=== PATIENT | female | born 1995 | race American Indian/Alaskan Native ===

== ENCOUNTER 2017-04-19 11:20 | Emergency (ER) | payer MEDICAID ==
[2017-04-19 11:44] VITALS: BMI 25.3
[2017-04-19] MEDS ORDERED: Lactated Ringer's 1,000 ML IV SCH (11:45)
--- NOTE | 2017-04-19 11:50 | OBHP ---
Datetime: 04/19/2017 11:47 IP Adm Impression: Postterm, intrauterine Admit Comment, IP Provider: at 40=weeks julio with c/o ctxs started last night, 03/30, no vb, lof ,+fm. obhx priimi pmh de med pnv all nkda psh de soch de ve ft/50/-3 a/p at 40weeks in early labor npo/ivf will revaluate Pelvic Type - PN: Adequate Extremities - PN: Normal Abdomen - PN: Normal Back - PN: Normal Breast - PN: Normal Lungs - PN: Normal Heart - PN: Normal Thyroid - PN: Normal Neurologic - PN: Normal HEENT - PN: Normal General - PN: Normal FHR - Baseline A Provider: 130 Contraction Comments Provider: irrg EGA AdmitDate IP: 40.1 Vital Signs Provider: Reviewed; Within Normal Limits IP Chief Complaint: Uterine contractions NICHD Variability Prov Fetus A: Moderate 6-25bpm Dilatation, Provider: ft Effacement, Provider: 50 Station, Provider: -3 Genitourinary Exam: Normal DTRs - PN: Normal
--- NOTE | 2017-04-19 14:51 | OBHP ---
Datetime: 04/19/2017 14:48 Admit Comment, IP Provider: pt was seen at bed side. c/o ctxs irrg, no vb, lof,+fm ve ft/50/-3 plan dc home labor ins given po hyration f/u on saturday in clinic FHR - Baseline A Provider: 130 Contraction Comments Provider: irrg Vital Signs Provider: Reviewed; Within Normal Limits NICHD Variability Prov Fetus A: Moderate 6-25bpm NICHD Accel Fetus A IP Provider: 15X15 FHR Category Provider Fetus A: Category I Dilatation, Provider: ft Effacement, Provider: 50 Station, Provider: -3 Datetime: 04/19/2017 11:47 EGA AdmitDate IP: 40.1
--- NOTE | 2017-04-19 14:53 | OBDCSUM ---
Datetime: 04/19/2017 14:50 Discharged to, Provider: Home Follow up at, Provider: saturday Disch Instr Diet: Regular Follow up in weeks, Provider: clinic Discharge Comment, Provider: dc home labor ins given po hyration f/u on saturday in clinic Discharge Diagnosis Prov Other: 40weeks false labor nst
--- NOTE | 2017-04-20 20:11 | OBADHP ---
Datetime: 04/20/2017 14:37 Admit Comment, IP Provider: 21yo with IUP at 40+ wks reports here today c/o spontaneous rupture of membranes at 12: 30pm today. She denies any VB but feels good movements. PNC at [facility] fifi. Uncomplicated course,. TOCo- Q 2-4mins. FHR- Category 1, Vtx- presentation, Assessment: IUP at 40+wks Spontaneous rupture of Membranes Plan: Admit for Labor monitoring. Pelvic Type - PN: Adequate Extremities - PN: Normal Abdomen - PN: Normal Back - PN: Normal Breast - PN: Normal Lungs - PN: Normal Heart - PN: Normal Thyroid - PN: Normal Neurologic - PN: Normal HEENT - PN: Normal General - PN: Normal Presentation-Admit: Vertex FHR - Baseline A Provider: 140 Membranes, Provider: Ruptured Comments, ACOG Physical Exam: Abd: Soft, NT, BS- present Gestation - Est Wks by US: 40.0 Pool Provider: Positive Nitrazine Provider: Positive Vital Signs Provider: Reviewed IP Chief Complaint: Uterine contractions; Suspected ruptured membranes; Maternal discomfort NICHD Variability Prov Fetus A: Moderate 6-25bpm NICHD Accel Fetus A IP Provider: 15X15 FHR Category Provider Fetus A: Category I NICHD Decel Fetus A IP Provider: None Dilatation, Provider: 3 Effacement, Provider: 80 Station, Provider: -1 Genitourinary Exam: Normal DTRs - PN: Normal EGA AdmitDate IP: 40.2 IP Adm Impression: Term, intrauterine ; Active labor; Ruptured Membranes IP Admit Plan: Admit to unit; Initiate labor protocol Datetime: 04/19/2017 14:48 Contraction Comments Provider: irrg
[2017-04-20 21:08] LABS: MEAN CELL VOLUME 76.6 fL (81.0-99.0); MEAN CORPUSCULAR HEMOGLOBIN 23.6 pg (27.0-31.0); MEAN CORPUSCULAR HGB CONC 30.8 g/dL (33.0-37.0); MEAN PLATELET VOLUME 9.7 fL (7.2-11.7); RED CELL DISTRIBUTION WIDTH 15.3 % (11.5-14.5); WHITE BLOOD COUNT 12.9 K/uL (4.8-10.8)
[2017-04-20 21:20] LABS: ALKALINE PHOSPHATASE 234 U/L (38-126); ALT/SGPT 24 U/L (9-52); AST/SGOT 25 U/L (14-36); BILIRUBIN,TOTAL 0.8 mg/dL (0.2-1.3); BLOOD UREA NITROGEN 4 mg/dL (7-17); CALCIUM 9.3 mg/dl (8.6-10.4); CARBON DIOXIDE 21 mmol/L (22-30); CHLORIDE 101 mmol/L (98-107); GFR AFRICAN-AMERICAN > 60; GLUCOSE,RANDOM 64 mg/dL (65-105); POTASSIUM 3.2 mmol/L (3.6-5.2); SODIUM 135 mmol/L (132-148); TOTAL PROTEIN 7.3 g/dL (6.3-8.3)
[2017-04-20 23:39] LABS: RBC URINE 14 /hpf (0-3); URINE BACTERIA OCC (<OCC); URINE BILIRUBIN NEGATIVE (NEGATIVE); URINE BLOOD 3+ (NEGATIVE); URINE COLOR Yellow (YELLOW); URINE GLUCOSE (UA) NORMAL (Normal); URINE KETONE 2+ mg/dL (NEGATIVE); URINE LEUKOCYTE ESTERASE 2+ Leu/uL (Negative); URINE PROTEIN 2+ mg/dL (NEGATIVE); WBC URINE 59 /hpf (0-5)
--- NOTE | 2017-04-22 14:54 | OBPPN ---
Datetime: 04/22/2017 14:47 PP Pain Prov: Within normal limits PP Nausea Prov: Denies PP Flatus Prov: No PP BM Prov: No PP Breasts Prov: Normal PP Heart Prov: Normal PP Lungs Prov: Normal PP Abdomen/Uterus Prov: Normal PP Lochia Prov: Normal PP Vulva/Perineum Prov: Normal PP CVA Tenderness Prov: Normal PP Extremities Prov: Normal PP C/S Incision Prov: Not Applicable PP Progress Prov: Normal PP Comments Phys Exam Prov: Abdomen: Soft. Non distended. (+) BS. Fundus firm, mobile, nontender, at umbilicus. Mild to moderate lochia rubra. Extremities: no calf tenderness All other systems reviewed and are negative PP Impression Prov: Normal progression PP Plan Prov: Continue present management PP Progress Note Prov: Patient received in room 452. exclusively. Denies nausea, vomit ing. Ambulating and voiding without difficulty. (+) flatus; (-) BM P.E.: as above. WD in NAD. Awake, alert, oriented to time, person and place. Pleasant and cooperat phylicia - PPD#1 H/H 11.2/36.4. Rh(+) Assessment: PPD#1 21 y.o. P1, S/P ; afebrile, vital signs stable. Clinically stable. Plan: 1) Continue present management 2) Anticipate discharge home 04/23/17 Vital Signs Provider PP: Reviewed
== END 2017-04-19 14:50 | disposition home or self-care (01) ==
LOC: C.EROB 11:20
DX: O47.1 False labor at or after 37 completed weeks of gestation (principal); Z3A.40 40 weeks gestation of pregnancy
CPT/HCPCS: 80053; 81001; 85027; 86592; 86850; 86900; 96360; 99283; J7120

== ENCOUNTER 2017-04-20 14:51 | Inpatient (IN) | payer MEDICAID ==
[2017-04-20 21:22] VITALS: BMI 25.7
[2017-04-20] MEDS ORDERED: Oxytocin 30 UNIT 30 UNITS/500 ML BAG IV SCH (22:45)
[2017-04-21] MEDS ORDERED: Penicillin G 5 Million Unit Vial IVPB ONE ×2 (07:42→07:55)
[2017-04-21] MEDS ORDERED: Bupivacaine HCl 0.25% PF (10 ml) Inj ONE (07:56)
[2017-04-21] MEDS ORDERED: Lidocaine 2% Inj (20ml) ONE (11:06)
--- NOTE | 2017-04-21 11:41 | OBDS ---
DELIVERY PERSONNEL Delivery Doctor: Po Bryant MD Chancellor: Monica Escobedo RN Anesthesiologist: Kenna Flores MD MATERNAL INFORMATION Delivery Anesthesia: Epidural Estimated Blood Loss (ml): 300 Placenta Cultured: No Maternal Complications: None Provider Comments: uncomplicated spontaneous vaginal delivery of a viable female infant with s cores of 9 and 9. [place]-anterior positioning. ebl- 300mls LABOR SUMMARY EDC: 04/18/2017 00:00 No. Babies in Womb: 1 LABOR INFORMATION Onset of Labor: 04/20/2017 12:30 Group B Beta Strep: Negative MEMBRANES Membranes Rupture Method: Spontaneous Rupture of Membranes: 04/20/2017 12:30 Length of Rupture (hrs): 22.72 Amniotic Fluid Color: Clear Amniotic Fluid Amount: Moderate Amniotic Fluid Odor: Normal STAGES OF LABOR Stage 3 hrs: 0 Stage 3 min: 4 Total Time in Labor hrs: 22 Total Time in Labor min: 47 VAGINAL DELIVERY Laceration Extension: Third Degree Laceration Type: Vaginal Laceration Repair: Yes Initial Vag Sponge Count: 1 Final Vag Sponge Count: 1 Initial Vag Sharps Count: 1 Final Vag Sharps Count: 1 Sponge Count Correct: Yes Sharps Count Correct: Yes Count Comment: count correct and ackownledged by provider BABY A INFORMATION Delivery Date/Time: 04/21/2017 11:13 Method of Delivery: Vaginal Born in Route : No : N/A Forceps: N/A Vacuum Extraction: N/A Shoulder Dystocia : No SHOULDER DYSTOCIA BABY A Infant Delivery Date/Time: 04/21/2017 11:13 PRESENTATION/POSITION BABY A Presentation: Cephalic Cephalic Presentation: Vertex Vertex Position: Left Occipital Anterior Breech Presentation: N/A PLACENTA INFORMATION BABY A Placenta Delivery Time : 04/21/2017 11:17 Placenta Method of Delivery: Spontaneous Placenta Status: Delivered SCORES BABY A Heart Rate 1 min: >100 bpm Resp Effort 1 min: Good Cry Reflex Irritability 1 min: Cough or Sneeze or Pulls Away Muscle Tone 1 min: Active Motion Color 1 min: Body [place], Extremities Blue Resuscitation Effort 1 min: Tactile Stimulation SCORE 1 MIN: 9 Heart Rate 5 min: >100 bpm Resp Effort 5 min: Good Cry Reflex Irritability 5 min: Cough or Sneeze or Pulls Away Muscle Tone 5 min: Active Motion Color 5 min: Body [place], Extremities Blue Resuscitation Effort 5 min: N/A SCORE 5 MIN: 9 INFANT INFORMATION BABY A Gestational Age at Delivery: 40.2 Gestational Status: Term Outcome : Liveborn Condition : Stable Sex: Female IDENTIFICATION/MEDS BABY A ID Band Number: [id number] ID Band Location: Left Leg; Left Arm Sensor Applied: Yes Sensor Number: [id number] Sensor Location : Cord Clamp WEIGHT/LENGTH BABY A Infant Birthweight (gms): 2880 Infant Weight (lb): 6 Weight (oz): 6 Length Inches: 19.00 Length cms: 48.3 CORD INFORMATION BABY A No. Cord Vessels: 3 Nuchal Cord : N/A Cord Blood Taken: Yes Suction: Mouth; Nose ASSESSMENT BABY A Hand Sewer/ALS Called : Yes Transferred To: [facility]
[2017-04-21] MEDS ORDERED: Bupivacaine-Epi 0.5%-1:200,000 PF Inj ONE (12:07)
[2017-04-22 08:35] LABS: HEMOGLOBIN 11.2 g/dL (11.0-16.0); MEAN CELL VOLUME 76.5 fL (81.0-99.0); MEAN CORPUSCULAR HEMOGLOBIN 23.5 pg (27.0-31.0); MEAN CORPUSCULAR HGB CONC 30.7 g/dL (33.0-37.0); MEAN PLATELET VOLUME 9.4 fL (7.2-11.7); RBC 4.76 Mil/uL (3.80-5.20); RED CELL DISTRIBUTION WIDTH 15.5 % (11.5-14.5)
[2017-04-22 08:36] LABS: WHITE BLOOD COUNT 21.1 K/uL (4.8-10.8)
[2017-04-22 16:11] VITALS: O2SAT 99
--- NOTE | 2017-04-23 08:00 | OBPPN ---
Datetime: 04/23/2017 07:58 PP Pain Prov: Within normal limits PP Nausea Prov: Denies PP Flatus Prov: Yes PP Breasts Prov: Normal PP Heart Prov: Normal PP Lungs Prov: Normal PP Abdomen/Uterus Prov: Normal PP Lochia Prov: Normal PP Vulva/Perineum Prov: Normal PP CVA Tenderness Prov: Normal PP Extremities Prov: Normal PP Comments Phys Exam Prov: Abd: Soft,NT, BS- present UT- Firm PP Impression Prov: Normal progression PP Plan Prov: Discharge PP Progress Note Prov: s/p , PPD2 Clinically Stable. Plan: D/c Home Vital Signs Provider PP: Reviewed
--- NOTE | 2017-04-23 08:02 | OBDCSUM ---
Datetime: 04/23/2017 08:00 Discharged to, Provider: Home Follow up at, Provider: [facility] Disch Instr Activity: Normal activity Disch Instr Diet: Regular Discharge Instructions, Provider: Routine instructions given Discharge Diagnosis, Provider: Term Delivered Discharge Time: 04/23/2017 08:00 Follow up in weeks, Provider: 6 weeks Disch Referrals: None Contraception discussed, Prov: Yes Discharge Comment, Provider: S/P Uncomplicated , Clinically stable. Discharge Diagnosis Prov Other: S/P Uncomplicated , Clinically stable.
[2017-04-23 09:15] VITALS: BP 106/62; PULSE 58; RESP 18; TEMP 97
== END 2017-04-23 12:00 | disposition home or self-care (01) | DRG 373 ==
LOC: C.EROB 14:51 → C.4D 15:54 → C.4M 04-21 13:02
PROVIDERS: ADMIT Obstetrics & Gynecology; ATTEND Obstetrics & Gynecology
PROC: 10E0XZZ Delivery of Products of Conception, External Approach (ICD-10-PCS; principal; 2017-04-21)
PROC: 0DQR0ZZ Repair Anal Sphincter, Open Approach (ICD-10-PCS; 2017-04-21)
DX: O70.20 Third degree perineal laceration during delivery, unspecified (principal); Z37.0 Single live birth; Z3A.40 40 weeks gestation of pregnancy